=== PATIENT | female | born 1960 | race Caucasian/White ===

== ENCOUNTER 2022-07-13 11:49 | Outpatient (CLI) | payer BC, SELFPAY ==
[2022-07-13 12:46] LABS: Anion Gap 9 mmol/L (8-16); Blood Urea Nitrogen 21 mg/dL (7-18); Calcium 9.7 mg/dL (8.5-10.1); Carbon Dioxide 29 mmol/L (21-32); Chloride 104 mmol/L (98-108); Estimated Glomerular Filt Rate > 60; Glucose 91 mg/dL (70-99); Osmolality Calculated 297 mOsm/kg (285-295); Potassium 4.4 mmol/L (3.5-5.1); Sodium 142 mmol/L (136-145)
== END 2022-07-13 11:50 | disposition home or self-care (01) ==
PROVIDERS: Anesthesiology; PCP Family Medicine; Visit Provider Urology
DX: Z79.899 Other long term (current) drug therapy (principal); N39.3 Stress incontinence (female) (male)
CPT/HCPCS: 36415; 80048; 87086

== ENCOUNTER 2022-07-17 00:12 | Day surgery (SDC) | payer BC, SELFPAY ==
[2022-07-10 09:38] VITALS: BMI 26.6
--- NOTE | 2022-07-10 09:42 | PC.NURSE ---
Report to the Outpatient Waiting Room, entrance under the green pavilion located off [facility], at time 0615 on date 07/17/22. OR Time: 0815. Time changes happen often and if your time is changed the preop area will call you the afternoon before. - You and your visitor will be asked to self-screen and do not enter if you have any COVID symptoms. - We encourage only one visitor and NO visitors under age 16 are allowed at this time. Your visitor will receive communication by the phone number that is given day of service. - The patient visitor is requested to social distance or may leave the building when not with patient due to restrictions. - A mask is required within the hospital. Patients may have clear liquids (water, carbonated beverages, clear teas, apple juice) until 3 hours prior to surgery with a maximum of 20 ounces. - No food from midnight until time of surgery Take the following medications with a SIP of water the morning of surgery: NONE Medications to discontinue per physician: VITAMINS/SUPPLEMENTS Date to take last dose: 07/13/22 Please no make-up, nail gambian, hairspray, perfume, deodorant, or body powder the day of surgery. No jewelry (including any body piercings) or valuables the day of surgery, leave them at home. Please take a shower or bath the night before, or the morning of, surgery with an antibacterial soap. Wear comfortable, loose fitting clothing. - Jewelry must be removed prior to entering the operating room. Rings and piercings that are not removed may be cut off. - The hospital will not accept responsibility for valuables. - Please leave all valuables, including medications, at home the day of surgery. If you are going home after surgery, a licensed road train driver must drive you home. - NO public transportation without another adult. - We recommend that an adult stay with you for 24 hours following discharge. - We also recommend that you do not drive, make important decision, drink alcoholic beverages, or take any drugs that were not prescribed by your health care provider for at least 24 hours after your discharge time. Follow any additional instructions given to you from your surgeon. If you or anyone in your household have experienced Covid symptoms in the past week, please notify your surgeon or the nurse liaison at the phone number below for possible testing. Telephone instructions given to PT - CHICHO LUCIA and asked if any additional questions and then verbalized understanding. Patient advised to call surgeon office or pre surgery nurse liaison [phone] if any additional questions.
--- NOTE | 2022-07-12 15:51 | PM.IMHP ---
H&P: HPI History of Present Illness Date/Time: 07/12/22 15:51 Chief Complaint: 8-year-old with stress incontinence presents for her surgical procedure. Alternatives including observation and pelvic floor exercises discussed Review of Systems Review of Systems: All systems reviewed & are unremarkable except as noted in HPI and below PMFSH Social History Social History Smoking status: Never smoker Alcohol intake: never Substance use: never Substance use type: does not use Living arrangements: with family Spiritual care concerns: No Meds Home Medications and Allergies Home Medications Medication Instructions Recorded Confirmed Type calcium carbonate 600 mg calcium 1,200 mg PO DAILY 07/10/22 07/10/22 History (1,500 mg) tablet (Calcium) estradiol 1 mg tablet 0.5 mg PO DAILY 07/10/22 07/10/22 History hydrochlorothiazide 12.5 mg tablet 12.5 mg PO DAILY 07/10/22 07/10/22 History multivitamin-ferrous 1 tablet PO DAILY 07/10/22 07/10/22 History fumarate-folic acid 18 mg-400 mcg tablet (Centrum Women) omega 7-rvj-tnt-fish oil 1,200 mg 1 cap PO DAILY 07/10/22 07/10/22 History (144 mg-216 mg) capsule (Fish Oil) rosuvastatin 20 mg tablet 20 mg PO DAILY 07/10/22 07/10/22 History Allergies Allergy/AdvReac Type Severity Reaction Status Date / Time No Known Allergies Allergy Verified 07/10/22 09:35 Exam Narrative: no acute distress positive urethral mobility alert and oriented x3 normal breathing Assessment and Plan Assessment and plan (1) DANA (stress urinary incontinence, female): Code(s): N39.3 - Stress incontinence (female) (male) Status: Acute Assessment and Plan: urethral sling. Understands risks of bleeding, infection, lack of efficacy, need for repeat procedures, postoperative voiding dysfunction including incontinence and retention, hip and leg pain, dyspareunia, mesh related complications. Agrees to proceed
[2022-07-17] MEDS: LACTATED RINGERS 1,000 ML 30 ML IV CONT (07:00)
--- NOTE | 2022-07-17 07:10 | WPDHPUPDATE1 ---
History and Physical Update Update Date/Time: 07/17/22 07:10 History and Physical has been reviewed, including an updated exam of the patient. There are NO changes in the patient's condition. Risks, benefits, and alternatives have been discussed and questions answered. Patient agrees to proceed with procedure.
[2022-07-17 07:23] VITALS: BP 128/70; PULSE 65; RESP 16; TEMP 36.3; O2SAT 100
--- NOTE | 2022-07-17 07:25 | WPDANESEPPF ---
Anes - Initial Pre Proc Eval Procedure: Operation Date: 07/17/22 08:15 Proposed Procedures p Urethral Sling - Jey Vega MD Date/Time: 07/17/22 07:25 Surgeon: Jey Vega MD Pre Op Diagnosis: stress incontinence Patient Data Age: 62 Gender: F Height: 1.65 m Weight: 72.57 kg Allergies Allergy/AdvReac Type Severity Reaction Status Date / Time No Known Allergies Allergy Verified 07/17/22 06:47 Home Medications Medication Instructions Recorded Confirmed Type calcium carbonate 600 mg calcium 1,200 mg PO DAILY 07/10/22 07/10/22 History (1,500 mg) tablet (Calcium) estradiol 1 mg tablet 0.5 mg PO DAILY 07/10/22 07/10/22 History hydrochlorothiazide 12.5 mg tablet 12.5 mg PO DAILY 07/10/22 07/10/22 History multivitamin-ferrous 1 tablet PO DAILY 07/10/22 07/10/22 History fumarate-folic acid 18 mg-400 mcg tablet (Centrum Women) omega 0-nmq-vsq-fish oil 1,200 mg 1 cap PO DAILY 07/10/22 07/10/22 History (144 mg-216 mg) capsule (Fish Oil) rosuvastatin 20 mg tablet 20 mg PO DAILY 07/10/22 07/10/22 History Patient hx anesthesia problems: none Family hx anesthesia problems: none Results Review: All pre-operative results and documents have been reviewed as part of the pre-operative evaluation. PENDING SALE TO [facility] Past Medical History Medical History (Updated 07/17/22 @ 07:25 by Adair Arce MD) HTN (hypertension) Hyperlipidemia Social History Social History Smoking status: Never smoker Alcohol intake: never Substance use: never Substance use type: does not use Living arrangements: with family Spiritual care concerns: No Anes - Eval Final PreProcedure Day of Procedure 07/17/22 07:25 Patient weight: overweight Heart: regular rate and rhythm Lungs: clear to auscultation Airway: Mallampati scale class II Neurological: alert and oriented Last oral intake: >/= 8 hours ASA classification: II Emergent: no Anesthetic plan: proceed Results Review: All pre-operative results and documents have been reviewed as part of the pre-operative evaluation. Informed Consent: The patient's anesthetic plan and its attendant risks and benefits were discussed with the patient/family/POA. Questions were solicited and answers provided to the satisfaction of the patient/family/POA.
--- NOTE | 2022-07-17 07:59 | W.PM.PROC2 ---
Procedure Note - Detailed Date of Procedure 07/17/22 Pre-op Diagnosis stress incontinence Post-op Diagnosis Same Procedure Performed mid urethral sling cystoscopy Surgeon Jey Vega MD Indications This is a female with confirm stress urinary incontinence. She desires surgical correction. She understands the risks of bleeding, infection, injury to the urinary tract, vaginal mesh extrusion, urinary tract mesh erosion, obstructive voiding requiring a secondary procedure, hip and leg pain, dyspareunia, inability to improve overactive bladder symptoms. She agrees to proceed. Description of Procedure She was correctly identified. Informed consent obtained. She was brought the operating room. She was given appropriate anesthesia. She was given appropriate perioperative antibiotics. A time-out performed. I marked out the site of the inner thigh incisions. I anesthetized the skin and made those incisions. I anesthetized the anterior vaginal wall over the mid urethra. I made a 1 cm incision. I dissected out laterally taking great care not to injure the refilled vaginal wall. I passed the helical trocars. First on the left. Then on the right. I did this from the thigh incision towards the vaginal incision. The sling was connected to the trocars and brought out through the thigh incision. I tensioned the sling appropriately. I cut and the plastic sheaths. I then closed the incision with 2 0 Vicryl. On cystoscopy there is no tumors or surgical artifact. There was no surgical artifact in the urethra. I cut the excess sling material. Close incisions with glue. She was awakened and transferred to the PACU in stable condition. Implants Urethral sling Drains No Packing No Pathology None sent Complications No immediate complications Condition Stable Disposition PACU
[2022-07-17] MEDS: ceFAZolin 2 GM/D5W 50 ML 2 GM/50 ML BAG IVPB (08:17)
[2022-07-17] MEDS: BUPIVACAINE/EPINEPHRINE 0.25% 50 ML VIAL INFILTRATE (08:31)
[2022-07-17 08:48] VITALS: BP 109/63; PULSE 73; RESP 15; O2SAT 99
[2022-07-17 09:15] VITALS: BP 120/65; PULSE 50; RESP 15; O2SAT 99
[2022-07-17] MEDS: oxyCODONE HCL (*CRX) 5 MG TAB IR PO (09:31)
[2022-07-17 10:07] VITALS: BP 135/66; PULSE 52; RESP 15
--- NOTE | 2022-07-17 10:55 | SUR.PHASEII ---
0945 PATIENT VOIDED X 1. HAVING DIFFICULTY WALKING D/T INCISIONAL PAIN.
== END 2022-07-17 10:09 | disposition home or self-care (01) ==
PROVIDERS: PCP Family Medicine; Visit Provider Urology
PROC: (CPT 57288; principal; 2022-07-17 08:15)
DX: N39.3 Stress incontinence (female) (male) (principal); I10 Essential (primary) hypertension; E78.5 Hyperlipidemia, unspecified
CPT/HCPCS: 57288; A9270; C1771; J0690; J2704; J3010; J7030; J7120